=== PATIENT | female | born 1970 | race Caucasian/White ===

== ENCOUNTER → 2021-09-03 | Day surgery (SDC) | payer OTHER ==
[~2021-09-03] VITALS: Ht 157.5 cm; Wt 79.4 kg
[~2021-09-03] MED LIST: ACTOS30 MG PO; CLARITIN10 MG PO; COQ-10100 MG PO; ESTRACE1 MG PO; GLUCOTROL5 MG PO; JARDIANCE25 MG PO; LIPITOR40 MG PO; MAG-OXIDE 400M400 MG PO; PERCOCET 7.5/321 TAB PO; PRINIVIL20 MG PO; PROTONIX 40MG T40 MG PO; PROZAC20 MG PO; SINEQUAN50 MG PO; SYNTHROID100 MCG PO; VITAMIN D325 MC4 PO; ZANAFLEX4 M1 PO
[2021-09-03 09:46] LABS: BASOPHIL 0.5 % (0-2); EOSINOPHIL 1.6 % (0-5); HCT 45.8 % (37.0-47.0); HGB 15.1 g/dl (12.5-16.0); LYMPHOCYTE 27.5 % (15-48); MONOCYTE 5.9 % (0-12); MPV 10.4 fL (6.0-9.5); NRBC 0; PLT 250 K/uL (150-400); RBC 4.87 M/uL (4.20-5.40); RDW 13.4 % (11.5-14.0); WBC 9.7 K/uL (4.0-10.5)
[2021-09-03 12:58] LABS: BUN/CREAT RATIO (CALC) 17.3 RATIO; CREATININE 0.75 mg/dL (0.51-0.95); POTASSIUM 3.9 mmol/L (3.5-5.1)
== END | disposition home or self-care (01) ==
LOC: FAS 08:53
PROVIDERS: Anesthesiology; Oral & Maxillofacial Surgery
DX: K04.7 Periapical abscess without sinus (principal); K02.9 Dental caries, unspecified; Z88.1 Allergy status to other antibiotic agents; Z88.2 Allergy status to sulfonamides; Z88.5 Allergy status to narcotic agent; Z91.040 Latex allergy status
CPT/HCPCS: D7140; D7210; 36415; 71045; 80048; 85025; J1100; J2185; J2250; J2405; J2704; J2710; J3010; J7120

== ENCOUNTER → 2021-10-22 | Day surgery (SDC) | payer OTHER ==
[~2021-10-22] VITALS: Ht 157.5 cm; Wt 79.4 kg
[~2021-10-22] MED LIST changes: +PERCOCET 5-3251 EACH PO
[2021-10-22 07:56] LABS: BASOPHIL 0.7 % (0-2); EOSINOPHIL 1.5 % (0-5); HCT 42.2 % (37.0-47.0); LYMPHOCYTE 38.2 % (15-48); MCH 30.8 pg (25.0-31.0); MCHC 33.2 g/dL (32.0-36.0); MCV 92.7 fL (78.0-100.0); MPV 10.4 fL (6.0-9.5); NEUTROPHIL 51.2 % (41-80); NRBC 0; PLT 222 K/uL (150-400); RBC 4.55 M/uL (4.20-5.40); RDW 13.6 % (11.5-14.0); WBC 8.2 K/uL (4.0-10.5)
[2021-10-22 08:12] LABS: ALBUMIN 3.6 g/dL (3.4-5.0); BILIRUBIN - TOTAL 0.2 mg/dL (0.2-1.0); BUN/CREAT RATIO (CALC) 24.3 RATIO; CREATININE 0.74 mg/dL (0.51-0.95); GLOBULIN (CALCULATION) 3.6 g/dL; POTASSIUM 4.1 mmol/L (3.5-5.1); TOTAL PROTEIN 7.2 g/dL (6.4-8.2)
== END | disposition home or self-care (01) ==
LOC: FAS 06:45
PROVIDERS: Oral & Maxillofacial Surgery
DX: M27.8 Other specified diseases of jaws (principal); Z98.818 Other dental procedure status
CPT/HCPCS: 36415; 80053; 85025; J1100; J1885; J2185; J2250; J2405; J2704; J3010; J7120